=== PATIENT | female | born 1940 | race Caucasian/White ===

== ENCOUNTER 2016-12-02 12:02 | Inpatient (IN) ==
[2016-12-02] MEDS ORDERED: 0.9 % Sodium Chloride 1,000 ML IVC ONE (12:34)
--- NOTE | 2016-12-02 12:37 | Emergency Department Note ---
Disposition Clinical Impression: Anemia Dyspnea Qualifiers: Dyspnea type: dyspnea on exertion Qualified Code(s): R06.09 - Other forms of dyspnea Disposition: Admitted As Inpatient Condition: Fair General Adult HPI - General Chief complaint: ED Shortness of Breath/Dyspnea Stated complaint: CASSIDY Time Seen by Provider: 12/02/16 12:25 Source: patient Limitations: no limitations - History of Present Illness Pain Scale: 0 - Related Data Home Medications Medication Instructions Recorded Confirmed [place]-3/Dha/Epa/Fish Oil [Fish Oil 1,000 mg PO DAILY 07/29/15 12/02/16 1,000 mg Softgel] Aspirin [Lo-Dose Aspirin EC] 81 mg PO DAILY 12/02/16 12/02/16 Metoprolol XL (24 HR) Succ [Toprol 25 mg PO DAILY 12/02/16 12/02/16 XL] Omeprazole [PriLOSEC] 20 mg PO DAILY 12/02/16 12/02/16 Simvastatin [Zocor] 20 mg PO DAILY 12/02/16 12/02/16 Allergies Allergy/AdvReac Type Severity Reaction Status Date / Time No Known Allergies Allergy Verified 12/02/16 12:19 Past Medical History - Past Medical History Medical history: Reports: coronary artery disease, hypertension, myocardial infarction, other Surgical history: Reports: coronary bypass (CABG) Psychiatric history: Reports: no psych history - Social History Smoking Status: Never smoker Smokeless Tobacco Status: No Alcohol use: Reports: none Drug use: Reports: none Physical Exam - General Limitations: no limitations General appearance: alert, in no apparent distress Course - Reevaluation(s) Reevaluation #1: Social the patient with the resident, Dr. Wall. Patient presents with a complaint of dyspnea on exertion. She does not describe dyspnea at rest. She states that at night when she lays down she lays on her back for a while until she relaxes and then rolls over on her side and sleeps. So she is denying orthopnea. She also denies chest pain. Resting on the bed she has good vitals. She does not appear in any respiratory distress. Physical exam is unremarkable except for the fact that the skin looks a little pale although the conjunctiva are normal. Patient does have history of anemia. Story is also concerning for the possibility of anginal equivalent. We will get a workup including cardiac. Disposition will be based on diagnostic results and reevaluation. Time: 12:36 Reevaluation #2: I took a call from lab. They report the patient's hemoglobin is 5.2. I find that to be believable given the patient's history and consolation of symptoms. I do not feel that value needs to be repeated. We will arrange to have the patient admitted for management of this severely symptomatic anemia Time: 13:22 Vital Signs Temperature 97.7 F 12/02/16 12:13 Pulse Rate 73 12/02/16 12:13 Respiratory Rate 18 12/02/16 12:13 Blood Pressure 132/70 12/02/16 12:13 O2 Sat by Pulse Oximetry 100 12/02/16 12:13 Temperature 97.4 F L 12/03/16 12:09 Pulse Rate 80 12/03/16 12:09 Respiratory Rate 15 12/03/16 12:09 Blood Pressure 151/73 12/03/16 12:09 O2 Sat by Pulse Oximetry 99 12/03/16 12:09 Oxygen Delivery Oxygen Delivery Room Air Medical Decision Making - Lab Data Result diagrams: 12/03/16 05:55 12/03/16 04:17 Lab Results 12/02/16 12/02/16 12/02/16 Range/Units 12:56 12:56 12:56 WBC (4.3-11.1) K/mcL RBC (3.82-4.97) M/mcL Hgb (11.5-15.4) g/dL Hct (35.3-44.9) % MCV (83.0-100.0) fL MCH (28.0-33.3) pg MCHC (31.6-35.5) g/dL RDW (11.5-14.5) % Plt Count (140-400) K/mcL MPV (9.4-12.4) fL Reticulocyte # (0.05-0.10) M/mcL Immature Gran % (0-4) % Seg Neutrophils % % Lymphocytes % % Monocytes % % Eosinophils % % Basophils % % Neutrophils # (1.6-8.9) K/mcL Lymphocytes # (0.6-4.6) K/mcL Monocytes # (0.0-1.3) K/mcL Eosinophils # (0.0-0.6) K/mcL Basophils # (0.0-0.2) K/mcL Immature Plt Fraction (1.1-6.1) % Percent Retic (1.6-2.8) % Immature Retic Fraction (11.0-38.0) % Retic Hgb Equivalent (28.61-36.33) pg PT (9.4-12.1) Seconds INR APTT (26.0-36.0) Seconds Sodium 139 (136-145) mEq/L Potassium 4.1 (3.5-4.5) mEq/L Chloride 108 (98-109) mEq/L Carbon Dioxide 25 (19-29) mEq/L BUN 21 H (7-20) mg/dL Creatinine 1.02 (0.57-1.11) mg/dL Est GFR ( Amer) > 60 (> 60) Est GFR (Non-Af Amer) 53 L (> 60) BUN/Creatinine Ratio 21 (6-26) Glucose 113 H (70-99) mg/dL Calculated Osmolality 292 (280-300) Calcium 9.3 (8.6-10.8) mg/dL Iron 13 L (50-170) mcg/dL % Saturation 2 L (15-50) % Transferrin 405 H (180-382) mg/dL Ferritin 7 (5-204) ng/ml Troponin I 0.01 (0-0.03) ng/mL B-Natriuretic Peptide 187 H (0-100) pg/mL Vitamin B12 (213-816) pg/mL Folate (7.0-31.4) ng/mL Urine Color (Yellow) Urine Clarity (Clear) Urine pH (5.0-8.0) pH Units Ur Specific [place] (1.010-1.025) Urine Protein (Neg-Trace) mg/dL Urine Glucose (UA) (Normal) mg/dL Urine Ketones (Negative) mg/dL Urine Blood (Negative) Urine Nitrite (Negative) Urine Bilirubin (Negative) Urine Urobilinogen (Normal) mg/dL Ur Leukocyte Esterase (Negative) Urine Microscopic RBC (0-3) per hpf Urine Microscopic WBC (0-3) per hpf Ur Squamous Epith Cells (None-Few) per lpf Urine Bacteria (None-Few) per hpf Hyaline Casts (None-Few) per lpf Ur Culture Indicated? (NO) Stool Occult Blood (Negative) Blood Type Antibody Screen Crossmatch 12/02/16 12/02/16 12/02/16 Range/Units 12:56 13:59 13:59 WBC (4.3-11.1) K/mcL RBC (3.82-4.97) M/mcL Hgb (11.5-15.4) g/dL Hct (35.3-44.9) % MCV (83.0-100.0) fL MCH (28.0-33.3) pg MCHC (31.6-35.5) g/dL RDW (11.5-14.5) % Plt Count (140-400) K/mcL MPV (9.4-12.4) fL Reticulocyte # (0.05-0.10) M/mcL Immature Gran % (0-4) % Seg Neutrophils % % Lymphocytes % % Monocytes % % Eosinophils % % Basophils % % Neutrophils # (1.6-8.9) K/mcL Lymphocytes # (0.6-4.6) K/mcL Monocytes # (0.0-1.3) K/mcL Eosinophils # (0.0-0.6) K/mcL Basophils # (0.0-0.2) K/mcL Immature Plt Fraction (1.1-6.1) % Percent Retic (1.6-2.8) % Immature Retic Fraction (11.0-38.0) % Retic Hgb Equivalent (28.61-36.33) pg PT (9.4-12.1) Seconds INR APTT (26.0-36.0) Seconds Sodium (136-145) mEq/L Potassium (3.5-4.5) mEq/L Chloride (98-109) mEq/L Carbon Dioxide (19-29) mEq/L BUN (7-20) mg/dL Creatinine (0.57-1.11) mg/dL Est GFR ( Amer) (> 60) Est GFR (Non-Af Amer) (> 60) BUN/Creatinine Ratio (6-26) Glucose (70-99) mg/dL Calculated Osmolality (280-300) Calcium (8.6-10.8) mg/dL Iron (50-170) mcg/dL % Saturation (15-50) % Transferrin (180-382) mg/dL Ferritin (5-204) ng/ml Troponin I (0-0.03) ng/mL B-Natriuretic Peptide (0-100) pg/mL Vitamin B12 342 (213-816) pg/mL Folate 9.7 (7.0-31.4) ng/mL Urine Color Yellow (Yellow) Urine Clarity Clear (Clear) Urine pH 6.5 (5.0-8.0) pH Units Ur Specific [place] 1.018 (1.010-1.025) Urine Protein Negative (Neg-Trace) mg/dL Urine Glucose (UA) Normal (Normal) mg/dL Urine Ketones Negative (Negative) mg/dL Urine Blood Small H (Negative) Urine Nitrite Negative (Negative) Urine Bilirubin Negative (Negative) Urine Urobilinogen Normal (Normal) mg/dL Ur Leukocyte Esterase Negative (Negative) Urine Microscopic RBC 3-5 H (0-3) per hpf Urine Microscopic WBC 0-3 (0-3) per hpf Ur Squamous Epith Cells Moderate H (None-Few) per lpf Urine Bacteria None Seen (None-Few) per hpf Hyaline Casts None Seen (None-Few) per lpf Ur Culture Indicated? NO (NO) Stool Occult Blood Negative (Negative) Blood Type Antibody Screen Crossmatch 12/02/16 12/02/16 12/02/16 Range/Units 14:09 14:09 14:09 WBC 2.9 L (4.3-11.1) K/mcL RBC 3.04 L (3.82-4.97) M/mcL Hgb 5.3 L* (11.5-15.4) g/dL Hct 19.5 L (35.3-44.9) % MCV 64.1 L (83.0-100.0) fL MCH 17.4 L (28.0-33.3) pg MCHC 27.2 L (31.6-35.5) g/dL RDW 16.5 H (11.5-14.5) % Plt Count 172 (140-400) K/mcL MPV 9.2 L (9.4-12.4) fL Reticulocyte # 0.07 (0.05-0.10) M/mcL Immature Gran % 0.3 (0-4) % Seg Neutrophils % 63.9 % Lymphocytes % 21.7 % Monocytes % 12.8 % Eosinophils % 1.0 % Basophils % 0.3 % Neutrophils # 1.9 (1.6-8.9) K/mcL Lymphocytes # 0.6 (0.6-4.6) K/mcL Monocytes # 0.4 (0.0-1.3) K/mcL Eosinophils # 0.0 (0.0-0.6) K/mcL Basophils # 0.0 (0.0-0.2) K/mcL Immature Plt Fraction 4.2 (1.1-6.1) % Percent Retic 2.4 (1.6-2.8) % Immature Retic Fraction 36.3 (11.0-38.0) % Retic Hgb Equivalent 14.7 L (28.61-36.33) pg PT 11.4 (9.4-12.1) Seconds INR 1.1 APTT 25.0 L (26.0-36.0) Seconds Sodium (136-145) mEq/L Potassium (3.5-4.5) mEq/L Chloride (98-109) mEq/L Carbon Dioxide (19-29) mEq/L BUN (7-20) mg/dL Creatinine (0.57-1.11) mg/dL Est GFR ( Amer) (> 60) Est GFR (Non-Af Amer) (> 60) BUN/Creatinine Ratio (6-26) Glucose (70-99) mg/dL Calculated Osmolality (280-300) Calcium (8.6-10.8) mg/dL Iron (50-170) mcg/dL % Saturation (15-50) % Transferrin (180-382) mg/dL Ferritin (5-204) ng/ml Troponin I (0-0.03) ng/mL B-Natriuretic Peptide (0-100) pg/mL Vitamin B12 (213-816) pg/mL Folate (7.0-31.4) ng/mL Urine Color (Yellow) Urine Clarity (Clear) Urine pH (5.0-8.0) pH Units Ur Specific [place] (1.010-1.025) Urine Protein (Neg-Trace) mg/dL Urine Glucose (UA) (Normal) mg/dL Urine Ketones (Negative) mg/dL Urine Blood (Negative) Urine Nitrite (Negative) Urine Bilirubin (Negative) Urine Urobilinogen (Normal) mg/dL Ur Leukocyte Esterase (Negative) Urine Microscopic RBC (0-3) per hpf Urine Microscopic WBC (0-3) per hpf Ur Squamous Epith Cells (None-Few) per lpf Urine Bacteria (None-Few) per hpf Hyaline Casts (None-Few) per lpf Ur Culture Indicated? (NO) Stool Occult Blood (Negative) Blood Type O POSITIVE Antibody Screen NEGATIVE Crossmatch See Detail Attestation Statement - Attestation Attestation: I, Dr. Perez, examined this patient [id number] and my medical decision- making was reviewed with Dr. Wall, Resident Physician. I agree with the documented findings, disposition and treatment plan as described except to the extent set forth below. Please see my progress notes for details.
--- NOTE | 2016-12-02 12:38 | Emergency Department Note ---
Disposition Clinical Impression: Dyspnea Qualifiers: Dyspnea type: dyspnea on exertion Qualified Code(s): R06.09 - Other forms of dyspnea Anemia Qualifiers: Anemia type: unspecified type Qualified Code(s): D64.9 - Anemia, unspecified Disposition: Admitted As Inpatient Condition: Fair SOB HPI - General Chief Complaint: ED Shortness of Breath/Dyspnea Stated Complaint: CASSIDY Time Seen by Provider: 12/02/16 12:25 Source: patient Mode of arrival: ambulatory Limitations: no limitations Nursing Notes Reviewed: Yes Vital Signs Reviewed: Yes - History of Present Illness 76-year-old female with a history of CABG 4 in 2012 and presents for evaluation of dyspnea on exertion. Notes that she has been dyspnea on exertion for the past week. Denies any chest pain. Denies any recent illnesses. No fevers or cough. States that she feels weak and slightly dizzy. Does have a history of anemia and was on iron supplementation until recently he denies any GI bleeding. No dark tarry stools or blood in the stools. No hemoptysis or hematemesis. Denies any abdominal pain. No nausea or vomiting. Denies any chest pain. No changes in medications. Pt Subjective Complaint: shortness of breath - Related Data Home Medications Medication Instructions Recorded Confirmed Fish Oil 500 mg Softgel 07/29/15 Metoprolol Succinate 12/02/16 Simvastatin 12/02/16 12/02/16 Allergies Allergy/AdvReac Type Severity Reaction Status Date / Time No Known Allergies Allergy Verified 12/02/16 12:19 All systems ED: reviewed and negative except as stated. Constitutional: Reports: as per HPI. Denies: fever Eyes: Reports: as per HPI ENT ED: Reports: as per HPI Cardiovascular: Reports: as per HPI Respiratory: Reports: as per HPI, dyspnea. Denies: cough Gastrointestinal: Reports: as per HPI. Denies: nausea, vomiting, hematemesis, melena, hematochezia Genitourinary: Reports: as per HPI Musculoskeletal: Reports: as per HPI Integumentary: Reports: as per HPI Neurological: Reports: as per HPI, weakness Psychiatric: Reports: as per HPI Endocrine: Reports: as per HPI Allergic/Immunologic: Reports: as per HPI Past Medical History - Past Medical History Medical history: Reports: coronary artery disease, hypertension, myocardial infarction, other Surgical history: Reports: coronary bypass (CABG) Psychiatric history: Reports: no psych history - Social History Smoking Status: Never smoker Smokeless Tobacco Status: No Alcohol use: Reports: none Drug use: Reports: none Physical Exam - General Limitations: no limitations General appearance: alert, in no apparent distress - Head Head exam: atraumatic, normocephalic, normal inspection - Eye Eye exam: Present: normal appearance, EOMI. Absent: scleral icterus - ENT ENT exam: normal exam, mucous membranes moist - Neck Neck exam: Present: normal inspection, trachea midline - Chest Chest inspection: Present: normal inspection, symmetric chest wall rise - Respiratory Respiratory exam: Present: normal lung sounds bilaterally. Absent: respiratory distress, prolonged expiratory phase - Cardiovascular Cardiovascular exam: Present: regular rate, normal rhythm - Abdominal Exam Abdominal exam: Present: soft, Non-Tender. Absent: guarding, rebound - Rectal Exam Poultry Buyer present during exam: Yes Rectal exam: Present: normal rectal tone, other (guaic sent to lab). Absent: hemorrhoids - Extremities Exam Extremities exam: Present: normal inspection, pedal edema (trace b/l) - Back Exam Back exam: Present: normal inspection, full ROM. Absent: tenderness - Neurological Exam Neurological exam: Present: alert - Skin Skin exam: Present: warm, dry, intact, pallor Course Course Narrative: Patient seen and examined. Patient's vitals are stable. Patient's in no acute respiratory distress. Patient denies history of congestive heart failure but does have a history of hypertension and CAD. Patient also has a history of anemia. Denying any GI symptoms or blood in stool. Patient skin does appear pallorous. Patient will get a screening cardiovascular exam including EKG, chest Eckrich, troponin. Patient will also get basic lab work looking for anemia. Disposition likely admission. - Reevaluation(s) Reevaluation #1: Asians resting comfortably. No acute distress. No abdominal pain. Patient's hemoglobin did show signs of anemia. Patient states that she had an upper and lower scope a year ago and she can recall no acute abnormalities. Time: 13:48 Vital Signs Temperature 97.7 F 12/02/16 12:13 Pulse Rate 73 12/02/16 12:13 Respiratory Rate 18 12/02/16 12:13 Blood Pressure 132/70 12/02/16 12:13 O2 Sat by Pulse Oximetry 100 12/02/16 12:13 Temperature 97.7 F 12/02/16 12:13 Pulse Rate 82 12/02/16 14:13 Respiratory Rate 18 12/02/16 14:13 Blood Pressure 142/73 12/02/16 14:13 O2 Sat by Pulse Oximetry 97 12/02/16 14:13 Oxygen Delivery Oxygen Delivery Nasal Cannula Shortness of Breath/Dyspnea - MDM Narrative Medical decision making narrative: 76-year-old female presents for evaluation of dyspnea on exertion for the past week. Notes a history of anemia and was on iron supplementation and B12 shots over a year ago. Patient denies any blood in her stool or black tarry stools. No history of liver disease or peptic ulcer disease. Patient did have an upper and lower endoscopy in the past year from what she can recall and did not show any acute abnormalities. Patient's hemoglobin on exam was found to be low likely causing her symptoms. Patient does appear to have some pallor. Patient had a stool guaiac performed and was sent to lab. Patient was given a liter of fluids. Patient's EKG shows no acute changes. Patient's chest x-ray also shows no acute changes. Patient will likely need further evaluation with GI and possible endoscopy. Patient's hemoglobin will need to be trended. Patient be admitted to the hospital service for further evaluation and monitoring. Patient is agreeable plan of care. - Lab Data Lab results reviewed: Yes I reviewed the patient's lab results. Result diagrams: 12/02/16 14:09 12/02/16 12:56 Lab Results 12/02/16 12/02/16 12/02/16 Range/Units 12:56 12:56 12:56 WBC (4.3-11.1) K/mcL RBC (3.82-4.97) M/mcL Hgb (11.5-15.4) g/dL Hct (35.3-44.9) % MCV (83.0-100.0) fL MCH (28.0-33.3) pg MCHC (31.6-35.5) g/dL RDW (11.5-14.5) % Plt Count (140-400) K/mcL MPV (9.4-12.4) fL Immature Gran % (0-4) % Seg Neutrophils % % Lymphocytes % % Monocytes % % Eosinophils % % Basophils % % Neutrophils # (1.6-8.9) K/mcL Lymphocytes # (0.6-4.6) K/mcL Monocytes # (0.0-1.3) K/mcL Eosinophils # (0.0-0.6) K/mcL Basophils # (0.0-0.2) K/mcL Immature Plt Fraction (1.1-6.1) % PT (9.4-12.1) Seconds INR APTT (26.0-36.0) Seconds Sodium 139 (136-145) mEq/L Potassium 4.1 (3.5-4.5) mEq/L Chloride 108 (98-109) mEq/L Carbon Dioxide 25 (19-29) mEq/L BUN 21 H (7-20) mg/dL Creatinine 1.02 (0.57-1.11) mg/dL Est GFR ( Amer) > 60 (> 60) Est GFR (Non-Af Amer) 53 L (> 60) BUN/Creatinine Ratio 21 (6-26) Glucose 113 H (70-99) mg/dL Calculated Osmolality 292 (280-300) Calcium 9.3 (8.6-10.8) mg/dL Troponin I 0.01 (0-0.03) ng/mL B-Natriuretic Peptide 187 H (0-100) pg/mL Urine Color (Yellow) Urine Clarity (Clear) Urine pH (5.0-8.0) pH Units Ur Specific [place] (1.010-1.025) Urine Protein (Neg-Trace) mg/dL Urine Glucose (UA) (Normal) mg/dL Urine Ketones (Negative) mg/dL Urine Blood (Negative) Urine Nitrite (Negative) Urine Bilirubin (Negative) Urine Urobilinogen (Normal) mg/dL Ur Leukocyte Esterase (Negative) Urine Microscopic RBC (0-3) per hpf Urine Microscopic WBC (0-3) per hpf Ur Squamous Epith Cells (None-Few) per lpf Urine Bacteria (None-Few) per hpf Hyaline Casts (None-Few) per lpf Ur Culture Indicated? (NO) Stool Occult Blood (Negative) 12/02/16 12/02/16 12/02/16 Range/Units 13:59 13:59 14:09 WBC 2.9 L (4.3-11.1) K/mcL RBC 3.04 L (3.82-4.97) M/mcL Hgb 5.3 L* (11.5-15.4) g/dL Hct 19.5 L (35.3-44.9) % MCV 64.1 L (83.0-100.0) fL MCH 17.4 L (28.0-33.3) pg MCHC 27.2 L (31.6-35.5) g/dL RDW 16.5 H (11.5-14.5) % Plt Count 172 (140-400) K/mcL MPV 9.2 L (9.4-12.4) fL Immature Gran % 0.3 (0-4) % Seg Neutrophils % 63.9 % Lymphocytes % 21.7 % Monocytes % 12.8 % Eosinophils % 1.0 % Basophils % 0.3 % Neutrophils # 1.9 (1.6-8.9) K/mcL Lymphocytes # 0.6 (0.6-4.6) K/mcL Monocytes # 0.4 (0.0-1.3) K/mcL Eosinophils # 0.0 (0.0-0.6) K/mcL Basophils # 0.0 (0.0-0.2) K/mcL Immature Plt Fraction 4.2 (1.1-6.1) % PT (9.4-12.1) Seconds INR APTT (26.0-36.0) Seconds Sodium (136-145) mEq/L Potassium (3.5-4.5) mEq/L Chloride (98-109) mEq/L Carbon Dioxide (19-29) mEq/L BUN (7-20) mg/dL Creatinine (0.57-1.11) mg/dL Est GFR ( Amer) (> 60) Est GFR (Non-Af Amer) (> 60) BUN/Creatinine Ratio (6-26) Glucose (70-99) mg/dL Calculated Osmolality (280-300) Calcium (8.6-10.8) mg/dL Troponin I (0-0.03) ng/mL B-Natriuretic Peptide (0-100) pg/mL Urine Color Yellow (Yellow) Urine Clarity Clear (Clear) Urine pH 6.5 (5.0-8.0) pH Units Ur Specific [place] 1.018 (1.010-1.025) Urine Protein Negative (Neg-Trace) mg/dL Urine Glucose (UA) Normal (Normal) mg/dL Urine Ketones Negative (Negative) mg/dL Urine Blood Small H (Negative) Urine Nitrite Negative (Negative) Urine Bilirubin Negative (Negative) Urine Urobilinogen Normal (Normal) mg/dL Ur Leukocyte Esterase Negative (Negative) Urine Microscopic RBC 3-5 H (0-3) per hpf Urine Microscopic WBC 0-3 (0-3) per hpf Ur Squamous Epith Cells Moderate H (None-Few) per lpf Urine Bacteria None Seen (None-Few) per hpf Hyaline Casts None Seen (None-Few) per lpf Ur Culture Indicated? NO (NO) Stool Occult Blood Negative (Negative) 12/02/16 Range/Units 14:09 WBC (4.3-11.1) K/mcL RBC (3.82-4.97) M/mcL Hgb (11.5-15.4) g/dL Hct (35.3-44.9) % MCV (83.0-100.0) fL MCH (28.0-33.3) pg MCHC (31.6-35.5) g/dL RDW (11.5-14.5) % Plt Count (140-400) K/mcL MPV (9.4-12.4) fL Immature Gran % (0-4) % Seg Neutrophils % % Lymphocytes % % Monocytes % % Eosinophils % % Basophils % % Neutrophils # (1.6-8.9) K/mcL Lymphocytes # (0.6-4.6) K/mcL Monocytes # (0.0-1.3) K/mcL Eosinophils # (0.0-0.6) K/mcL Basophils # (0.0-0.2) K/mcL Immature Plt Fraction (1.1-6.1) % PT 11.4 (9.4-12.1) Seconds INR 1.1 APTT 25.0 L (26.0-36.0) Seconds Sodium (136-145) mEq/L Potassium (3.5-4.5) mEq/L Chloride (98-109) mEq/L Carbon Dioxide (19-29) mEq/L BUN (7-20) mg/dL Creatinine (0.57-1.11) mg/dL Est GFR ( Amer) (> 60) Est GFR (Non-Af Amer) (> 60) BUN/Creatinine Ratio (6-26) Glucose (70-99) mg/dL Calculated Osmolality (280-300) Calcium (8.6-10.8) mg/dL Troponin I (0-0.03) ng/mL B-Natriuretic Peptide (0-100) pg/mL Urine Color (Yellow) Urine Clarity (Clear) Urine pH (5.0-8.0) pH Units Ur Specific [place] (1.010-1.025) Urine Protein (Neg-Trace) mg/dL Urine Glucose (UA) (Normal) mg/dL Urine Ketones (Negative) mg/dL Urine Blood (Negative) Urine Nitrite (Negative) Urine Bilirubin (Negative) Urine Urobilinogen (Normal) mg/dL Ur Leukocyte Esterase (Negative) Urine Microscopic RBC (0-3) per hpf Urine Microscopic WBC (0-3) per hpf Ur Squamous Epith Cells (None-Few) per lpf Urine Bacteria (None-Few) per hpf Hyaline Casts (None-Few) per lpf Ur Culture Indicated? (NO) Stool Occult Blood (Negative) - Radiology Data Radiology results reviewed: Yes I reviewed the patient's radiology results. Chest X-Ray 12/02/16 12:35 IMPRESSION: No acute cardiopulmonary disease. D/ / 12/02/2016 12:50:58 Olman Dupree MD / bcaart Interpreting Provider: Olman Dupree MD - EKG Data EKG attestation: Yes I reviewed and interpreted this EKG. EKG shows normal: Reports: sinus rhythm Rate: Reports: normal Rhythm: Reports: NSR [place]/QRS: Reports: left axis deviation Voltage: Reports: c/w LVH Interpretation: Reports: no acute changes, unchanged when compared to prior tracing (date) (08/11), nonspecific ST-T wave changes S.B.A.ROpal - S.Queta.AOumou Situation: Demographics Background: Presenting Complaint Assessment: Vital Signs, Course and respsone to treatment, Patient/Family Expectation Recommendation: Barrier(s) to disposition, Recommendation based on pending studies, treatments, or consults S.B.AOpalROpal Report Given to: Dr. Salas Walton Time: 14:17
[2016-12-02 13:16] LABS: BUN/Creatinine Ratio 21 (6-26); Blood Urea Nitrogen 21 mg/dL (7-20); Calcium 9.3 mg/dL (8.6-10.8); Carbon Dioxide 25 mEq/L (19-29); Chloride 108 mEq/L (98-109); Glucose 113 mg/dL (70-99); Osmolality,Calculated 292 (280-300); Potassium 4.1 mEq/L (3.5-4.5); Sodium 139 mEq/L (136-145); eGFR For African Americans > 60 (> 60); eGFR For Non-African Americans 53 (> 60)
[2016-12-02] MEDS ORDERED: Pantoprazole 80 MG in 0.9 % Sodium Chloride 50 ML IVPB ONE (13:46)
[2016-12-02 14:17] LABS: Bilirubin,Urine Negative (Negative); Blood,Urine Small (Negative); Clarity,Urine Clear (Clear); Color,Urine Yellow (Yellow); Glucose,Urine (UA) Normal (Normal); Ketones,Urine Negative (Negative); Leukocyte Esterase,Urine Negative (Negative); Nitrite,Urine Negative (Negative); PH,Urine 6.5 pH Units (5.0-8.0); Protein,Urine Negative (Neg-Trace); Specific Gravity,Urine 1.018 (1.010-1.025); Urobilinogen,Urine Normal (Normal)
[2016-12-02 14:17] LABS: Basophils % 0.3 %; Hematocrit 19.5 % (35.3-44.9); Immature Granulocytes % 0.3 % (0-4); Immature Platelets 4.2 % (1.1-6.1); Lymphocytes # 0.6 K/mcL (0.6-4.6); Lymphocytes % 21.7 %; Mean Corpuscular HGB Conc 27.2 g/dL (31.6-35.5); Mean Corpuscular Hemoglobin 17.4 pg (28.0-33.3); Mean Corpuscular Volume 64.1 fL (83.0-100.0); Mean Platelet Volume 9.2 fL (9.4-12.4); Monocytes # 0.4 K/mcL (0.0-1.3); Monocytes % 12.8 %; Neutrophils # 1.9 K/mcL (1.6-8.9); Platelet Count 172 K/mcL (140-400); Red Blood Count 3.04 M/mcL (3.82-4.97); Red Cell Distribution Width 16.5 % (11.5-14.5); Segmented Neutrophils % 63.9 %
[2016-12-02 14:19] LABS: Bacteria,Urine None Seen per hpf (None-Few); Hyaline Casts,Urine None Seen per lpf (None-Few); Squamous Epithelial Cell,Urine Moderate per lpf (None-Few); WBC,Urine 0-3 per hpf (0-3)
[2016-12-02 14:22] LABS: Hemoglobin 5.3 g/dL (11.5-15.4)
[2016-12-02 14:37] LABS: INR 1.1; Prothrombin Time 11.4 Seconds (9.4-12.1)
[2016-12-02] MEDS ORDERED: Pantoprazole 40 MG in 0.9 % Sodium Chloride Mini Bag 100 ML IVC SCH (15:00)
[2016-12-02] MEDS ORDERED: Ondansetron 4 MG/2 ML VIAL IVP PRN (15:54)
[2016-12-02] MEDS ORDERED: Naloxone 0.4 MG/ML INJ IVP PRN (15:54)
[2016-12-02 16:27] LABS: Immature Reticulocyte % 36.3 % (11.0-38.0); Retculocyte # 0.07 M/mcL (0.05-0.10); Reticulocyte % 2.4 % (1.6-2.8)
[2016-12-02 16:39] LABS: % Iron Saturation 2 % (15-50); Iron 13 mcg/dL (50-170); Transferrin 405 mg/dL (180-382)
[2016-12-02] MEDS ORDERED: Polyethylene Glycol 3350 255 GM POWDER PO PRN (16:41)
[2016-12-02] MEDS ORDERED: SODIUM CHLORIDE/NAHCO3/KCL/PEG 4,000 ML SOLN.RECON PO ONE (16:41)
[2016-12-02] MEDS ORDERED: Furosemide 20 MG/2 ML VIAL IVP PRN (16:49)
[2016-12-02 16:59] LABS: Ferritin 7 ng/ml (5-204)
--- NOTE | 2016-12-02 17:06 | Internal Med History&Physical ---
Date of Encounter: 12/02/16 Time of Encounter: 15:00 Assessment and Plan (1) Symptomatic anemia Current visit: Yes Status: Acute patient has been experiencing exertional dyspnea as well as fatigue and dizziness. Her hemoglobin was 5.3 on presentation appears last hemoglobin June 2016 she was 12. She does have a past history of iron deficiency anemia and was on iron supplements up until about a year ago. Occult stool was negative. Patient was typed and screened for 2 units PRBCs will give Lasix in between each unit 2 we will give Protonix IV every 12 hours 3 monitor H&H 4 consult GI-spoke with Dr. Gregorio who requests patient be nothing by mouth after midnight and night with bowel prep. 5 we will hold aspirin for now 6 anemia lab workup (2) CAD (coronary artery disease) Current visit: Yes Status: Acute On patient has not been experiencing any chest pain however she does have some dyspnea. For sick cardiac troponins are negative we will continue to cycle cardiac troponins 2 we will obtain cardiac echo 3 we will hold aspirin for now due to sudden anemia will continue with statin and metoprolol. Qualifiers: Coronary Disease-Associated Artery/Lesion type: [place] artery [place] vs. transplanted heart: [place] heart Associated angina: without angina Qualified Code(s): I25.10 - Atherosclerotic heart disease of [place] coronary artery without angina pectoris (3) CKD (chronic kidney disease) stage 3, GFR 30-59 ml/min Current visit: Yes Status: Acute Creatinine is 1. 02 stable at this time we will continue to monitor avoid nephrotoxins Monitor intake and output daily weights (4) DVT prophylaxis Current visit: Yes Status: Acute SCDs Internal Medicine - H&P: HPI Chief complaint: CHEN Admitted From: Emergency Dept Plans for Post Hospital Care: Home History of present illness: Ms. Watkins is a 76 year old female past medical history of CAD with CABG NORTH 2013 GERD lipidemia iron deficiency anemia. According to the patient she has been experiencing increasing dyspnea on exertion for the past week as well as fatigue/slight dizziness. She denies any chest pain recent illness sick exposures fevers cough nausea vomiting diarrhea abdominal pains. Patient has a history of anemia and was on iron supplements up until approximately year ago, she also was receiving B12 injections however she stopped that 2 years ago. She denies any history of GI bleeds she states that she had a colonoscopy EGD a year ago which was negative. She denies any dark tarry stools brian blood hematemesis hematuria hemoptysis. She is not on any blood thinners she does not take any NSAIDs she does take a baby aspirin daily She initially presented to an urgent care advised her to go to the ER. According to ER records lab work revealed patient had a hemoglobin of 5.3. Upon review last hemoglobin in June 2016 was 12.3. Troponin was 0.01 chest x-ray with no acute process occult stool was negative. She was typed and screened for 2 units of PRBCs and prepped for transfusion. She was given Protonix. she has been admitted for further workup and evaluation. Presently patient denies any chest pain or shortness of breath. She does not appear to be any respiratory distress. Patient does appear pale. Lungs sounds are clear in all vaca. Heart sounds S1-S2 with no rubs clicks gallops murmurs noted no pedal edema abdomen soft nontender. She is hemodynamically stable at this time IV this case with who agrees with plan. Past Med Surg Social Fam HX - Past Medical History Medical history: coronary artery disease, hypertension, myocardial infarction, other Psychiatric history: no psych history - Past Surgical History Surgical History: coronary bypass (CABG), [place]/BSO - Social History Smoking Status: Never smoker Smokeless Tobacco Status: No Alcohol use: none Drug use: none - Family History Father Living Status: Age at : 51 Cause of : MS Mother Living Status: Still Living Hx Family Cardiac Disorders: Yes (Hypertension) Internal Medicine - H&P: Meds [place]-3/Dha/Epa/Fish Oil [Fish Oil 1,000 mg Softgel] 1,000 mg PO DAILY 07/29/15 [History] Aspirin [Lo-Dose Aspirin EC] 81 mg PO DAILY 12/02/16 [History] Metoprolol XL (24 HR) Succ [Toprol XL] 25 mg PO DAILY 12/02/16 [History] Omeprazole [PriLOSEC] 20 mg PO DAILY 12/02/16 [History] Simvastatin [Zocor] 20 mg PO DAILY 12/02/16 [History] Allergies No Known Allergies Allergy (Verified 12/02/16 12:19) All Systems PM: A 10-system review of systems was performed and is negative for pertinent findings except as documented above in the HPI. - Constitutional Constitutional: fatigue, weakness - Cardiovascular Cardiovascular ROS IM: dyspnea on exertion, no chest pain, no diaphoresis, no dyspnea, no lightheadedness, no palpitations, no syncope - Respiratory Respiratory: dyspnea on exertion - Gastrointestinal Gastrointestinal: no abdominal pain, no diarrhea, no hematemesis, no hematochezia, no melena, no nausea, no vomiting - Genitourinary Genitourinary: no change in urinary stream, no dysuria, no flank pain, no hematuria - Musculoskeletal Musculoskeletal ROS IM: no numbness, no tingling - Integumentary Integumentary IM: no rash, no unusual bruising - Neurological Neurological ROS: no confusion, no convulsions, no focal weakness, no numbness, no tingling, no tremor(s) - Hematologic/Lymphatic Hematologic/Lymphatic: no easy bruising - Constitutional Vitals: Temp Pulse Resp BP Pulse Ox 97.6 F 82 14 148/70 100 12/02/16 16:20 12/02/16 16:20 12/02/16 16:20 12/02/16 16:20 12/02/16 16:20 General appearance: Present: A&O X 3, answers questions appropriately - Head Head exam: Present: atraumatic, normocephalic - Eye Eye exam: Present: PERRL, sclera anicteric Pupils: Present: PERRL Additional comments: Conjunctiva pale - Neck Neck exam general surgery: Present: supple, trachea midline. Absent: lymphadenopathy - Respiratory Respiratory exam: Present: CTAB. Absent: accessory muscle use, rales, rhonchi, wheezes - Cardiovascular Cardiovascular exam: Present: RRR, +S1, +S2. Absent: diastolic murmur, gallop, rubs, systolic murmur - GI/Abdominal GI/Abdominal exam: Present: normal bowel sounds, soft, no peritoneal signs. Absent: distended, tenderness - Extremities Exam Extremities exam: Present: warm, radial pulses palpable and symetrical. Absent : calf tenderness, cyanotic, pedal edema - Neurological Exam Neurological exam: Present: CN II-XII intact, oriented X3, no focal deficits. Absent: pronater drift, facial droop, speech deficit - Skin Skin exam: Present: dry, intact, pallor Internal Med - H&P Results - Labs CBC & Chem 7: 12/02/16 14:12/02/16 12:56 - EKG Data EKG shows normal: sinus rhythm - EKG Data Prior EKG available for review: yes When compared to previous EKG: there is no significant change - Diagnostic Studies Other Images Additional comments: Chest X-Ray 12/02/16 12:35 IMPRESSION: No acute cardiopulmonary disease. D/ / 12/02/2016 12:50:58 Olman Dupree MD / andres Interpreting Provider: Olman Dupree MD
[2016-12-02] MEDS ORDERED: 0.9 % Sodium Chloride 250 ML ONE (17:40)
[2016-12-02 17:48] LABS: Folate 9.7 ng/mL (7.0-31.4)
[2016-12-03] MEDS ORDERED: 0.9 % Sodium Chloride 250 ML ONE ×2 (00:27→22:39)
[2016-12-03 05:03] LABS: BUN/Creatinine Ratio 12 (6-26); Blood Urea Nitrogen 11 mg/dL (7-20); Calcium 8.7 mg/dL (8.6-10.8); Carbon Dioxide 22 mEq/L (19-29); Chloride 111 mEq/L (98-109); Glucose 109 mg/dL (70-99); Osmolality,Calculated 288 (280-300); Potassium 3.9 mEq/L (3.5-4.5); Sodium 139 mEq/L (136-145); eGFR For African Americans > 60 (> 60); eGFR For Non-African Americans > 60 (> 60)
[2016-12-03 06:14] LABS: Basophils % 0.3 %; Hematocrit 23.7 % (35.3-44.9); Hemoglobin 6.9 g/dL (11.5-15.4); Immature Granulocytes % 0.7 % (0-4); Immature Platelets 4.6 % (1.1-6.1); Lymphocytes # 0.6 K/mcL (0.6-4.6); Lymphocytes % 18.6 %; Mean Corpuscular HGB Conc 29.1 g/dL (31.6-35.5); Mean Corpuscular Hemoglobin 20.1 pg (28.0-33.3); Mean Corpuscular Volume 69.1 fL (83.0-100.0); Mean Platelet Volume 9.4 fL (9.4-12.4); Monocytes # 0.4 K/mcL (0.0-1.3); Monocytes % 13.3 %; Platelet Count 149 K/mcL (140-400); Red Blood Count 3.43 M/mcL (3.82-4.97); Red Cell Distribution Width 22.5 % (11.5-14.5); Segmented Neutrophils % 66.1 %
[2016-12-03 06:47] LABS: Anisocytosis 2+ (Not Present); Platelet Estimate Normal (Normal)
[2016-12-03 06:48] LABS: Hypochromasia Present (Not Present); Microcytosis Present (Not Present)
[2016-12-03] MEDS ORDERED: Simethicone 40 MG/0.6 ML MLS IR ONE (07:52)
--- NOTE | 2016-12-03 07:54 | Pre-Sedation Evaluation ---
Pre-sedation evaluation - Pre-sedation checklist Date of procedure: 12/03/16 Procedure: EGD and Colonoscopy Recent Vitals: Last Vital Signs Temp 97.9 F 12/03/16 06:54 Pulse 90 12/03/16 06:54 Resp 16 12/03/16 06:54 BP 148/71 12/03/16 06:54 Pulse Ox 96 12/03/16 06:54 H&P (including ROS) documented in medical record: Yes Previous reaction to sedatives/anesthetics: No Dietary Status: NPO after Midnight Airway Assessment: Patient can open mouth completely, TMJ function normal Dentition: No loose teeth or bridges Possible difficult airway: No ASA Classification *see protocol: CLASS II-Mild systemic disease Plan of Care: Pt appropriate candidate for procedure/moderate/conscious sedation , Risks/benefits of procedure/sedation discussed w/ patient/family
[2016-12-03] MEDS ORDERED: *HR* Midazolam HCl 5 MG/5 ML VIAL IVP ONE (07:56)
[2016-12-03] MEDS ORDERED: *HR* FentaNYL (PF) 100 MCG/2 ML VIAL ONE (07:57)
[2016-12-03] MEDS: *HR* Midazolam HCl 5 MG/5 ML VIAL IVP PRN ×2 (08:02→08:17)
[2016-12-03] MEDS: *HR* FentaNYL (PF) 100 MCG/2 ML VIAL IVP PRN ×2 (08:02→08:04)
[2016-12-03] MEDS: Pantoprazole 40 MG VIAL IVP SCH ×2 (09:56→17:11)
--- NOTE | 2016-12-03 10:50 | Event Note ---
Date of Encounter: 12/02/16 Time of Encounter: 16:00 76 year old female with h/o- CAD/CABG, HTN, CKD, iron-deficiency and B12 deficiency anemia, was admitted with exertional dyspnea, fatigue and dizziness. Patient is noted to have anemia with Hb 5.3 (baseline from 5 months ago was 12.5 ). Stool occult blood test negative in the ER. No reported hematuria, hematemesis, melena/hematochezia, hemoptysis; does use baby ASA but no reported anticoagulants or NSAID use at home; Patient seen and examined at bedside; Awake, alert and oriented*3 Chest- S1, S2 heard, systolic murmur Lungs are clear to auscultation Abdomen- soft, nontender Reviewed labs; EKG shows NSR; Symptomatic anemia- Plan to transfuse PRBC with intermittent Lasix; keep Hb>7 for now; supportive care and supplemental O2; continue to monitor Hb; Microcytic hypochromic anemia- check iron profile, Vit B12, FA levels; transfuse to keep Hb>7; r/o- GI bleed given significant drop in Hb, would benefit from EGD and Colonoscopy; d/w Surgery who plan to perform EGD/ Colonoscopy in am; keep NPO after midnight; GI bleed- suspected; no e/o- coffee ground emesis or UGIB; will d/c IV PPI drip ; continue IV Protonix BID for now; I have reviewed this case with the GUN STRIPER and Agree with GUN STRIPER note and rest of the plan;
--- NOTE | 2016-12-03 10:54 | Internal Med Progress Note ---
Date of Encounter: 12/03/16 Time of Encounter: 10:52 - Assessment and plan (1) Symptomatic anemia Current Visit: Yes Status: Acute Assessment and plan: Improving symptoms. Hemoglobin noted to be 6.9 after 2 units PRBC transfusion. We will transfuse 2 more units given underlying heart disease. Will use Lasix between transfusions. Continue to monitor. Unclear etiology. Underwent EGD and colonoscopy which showed no significant bleeding. EGD was noted to be completely normal; colonoscopy revealed 5 mm sessile cecal polyp, which was removed and sent for biopsy. Serum vitamin B12 and folic acid noted to be within normal limits. Serum iron noted to be low at 13, transferrin 405, ferritin was low at 7. Start ferrous sulfate supplements. Check hemolysis labs-reticulocyte count, haptoglobin and LDH. May need hemoglobin electrophoresis. Hematology consult as needed. (2) GI bleed Current Visit: Yes Status: Ruled-out Assessment and plan: EGD and colonoscopy noted to be completely normal. Stool occult blood test in the emergency room was negative. Low suspicion for GI bleed at this time. Qualifiers: GI bleed type/associated pathology: unspecified gastrointestinal hemorrhage type Qualified Code(s): K92.2 - Gastrointestinal hemorrhage, unspecified (3) Essential hypertension Current Visit: Yes Status: Chronic Assessment and plan: Continue home medications. (4) CAD (coronary artery disease) Current Visit: Yes Status: Chronic Qualifiers: Coronary Disease-Associated Artery/Lesion type: [place] artery [place] vs. transplanted heart: [place] heart Associated angina: without angina Qualified Code(s): I25.10 - Atherosclerotic heart disease of [place] coronary artery without angina pectoris (5) CKD (chronic kidney disease) stage 3, GFR 30-59 ml/min Current Visit: Yes Status: Chronic - Subjective Interval history: Just came back from EGD/Colonoscopy; feels slightly drowsy from anesthesia and reports some throat pain due to the procedure; no chest/abdominal pain, dyspnea ; improved fatigue and pallor; - Constitutional Vitals: Temp Pulse Resp BP Pulse Ox 99.1 F 87 16 111/56 99 12/03/16 07:50 12/03/16 08:37 12/03/16 08:37 12/03/16 08:37 12/03/16 08:37 General appearance: Present: A&O X 3 (slightly drowsy), answers questions appropriately - Respiratory Respiratory exam: Present: CTAB. Absent: accessory muscle use, rales, rhonchi, wheezes - Cardiovascular Cardiovascular exam: Present: RRR, +S1, +S2. Absent: diastolic murmur, gallop, rubs, systolic murmur - GI/Abdominal GI/Abdominal exam: Present: normal bowel sounds, soft, no peritoneal signs. Absent: distended, tenderness - Extremities Exam Extremities exam: Present: full ROM, warm, radial pulses palpable and symetrical. Absent: calf tenderness, cyanotic, pedal edema Internal Medicine: Result - Labs CBC & Chem 7: 12/03/16 05:55 12/03/16 04:17 Labs: Short CBC 12/03/16 Range/Units 05:55 WBC 3.0 L (4.3-11.1) K/mcL Hgb 6.9 L D (11.5-15.4) g/dL Hct 23.7 L (35.3-44.9) % Plt Count 149 (140-400) K/mcL Neutrophils # 2.0 (1.6-8.9) K/mcL BMP 12/03/16 04:17 Sodium 139 Potassium 3.9 Chloride 111 H Carbon Dioxide 22 BUN 11 D Creatinine 0.89 Glucose 109 H Calcium 8.7 Cardiac Enzymes 12/02/16 12/03/16 Range/Units 21:50 04:17 Troponin I 0.01 0.01 (0-0.03) ng/mL - ABG Interpretation ABG results: PT/INR, D-dimer PT 11.4 Seconds (9.4-12.1) 12/02/16 14:09 Consult Discharge Plan - Plan Referrals: Rhonda Hanley DO [Primary Care Provider] -
[2016-12-03] MEDS: Metoprolol XL (24 HR) Succ 25 MG TAB.ER.24H PO SCH (12:44)
[2016-12-03] MEDS ORDERED: Furosemide 20 MG/2 ML VIAL IVP ONE (14:36)
[2016-12-03 16:34] LABS: Immature Reticulocyte % 6.1 % (11.0-38.0); Retculocyte # 0.05 M/mcL (0.05-0.10); Reticulocyte % 1.3 % (1.6-2.8)
--- NOTE | 2016-12-03 17:33 | ECHO - Doppler Report ---
Echocardiogram Name: Judy Watkins Date of Study: 12/03/2016 Date: 1940 Ht: 63.0 in Medical Record#: [id number] Age: 76 Wt: 167.0 lb Gender: Female BSA: 1.79 Order #: [id number] Location: [facility] Room #: 2NE30 Reading Physician: Tess Amezquita DO Energy Conservation Technician: Beverley Dickey XIN Ordering Physician: Haris Conde MD Primary Physician: Rhonda Hanley DO Indications: Dyspnea Impressions: LVEF 60%. Normal left ventricular size and systolic function. There is evidence of mild diastolic dysfunction of the left ventricle. Normal right ventricular size and function. Mild-moderate mitral regurgitation. Mild-moderate tricuspid regurgitation. No pulmonary hypertension. Left Ventricular Wall Motion: Rest Echo Findings All wall segments showed normal motion. Findings: Study Quality * Technically adequate exam. ECG Findings * Normal sinus rhythm. Aorta * Normally sized aortic root. Aortic Valve * No aortic regurgitation. * Leaflets are not well characterized. Mild calcification. * No aortic stenosis. Mitral Valve * Normal mitral valve structure. * No mitral stenosis. * Mild-moderate mitral regurgitation. Tricuspid Valve * Normal tricuspid valve structure. * Mild-moderate tricuspid regurgitation. * Estimated RA pressure is 3 mmHg. * Estimated RVSP is 31 mmHg. * No pulmonary hypertension. Pulmonic Valve * Pulmonic valve is not well visualized. * No pulmonic stenosis. * Trace pulmonic regurgitation. Pulmonary Artery * Pulmonary artery not well visualized. Right Ventricle * Normal right ventricular structure and function. Right Atrium * Normal right atrial size. Left Ventricle * LVEF 60%. * Normal LV chamber size, wall thickness and function. * Mild left ventricular diastolic dysfunction. Pericardium * There is no pericardial effusion present. Left Atrium * Severely dilated left atrium. Interatrial Septum * No evidence of PFO by color Doppler. IVC * Normal IVC dimensions and inspiratory collapse. History Hypertension Hypercholesteremia Family History of CAD History of CAD/PTCA Coronary Artery Bypass Graft 08-05-12 a Previous Echo was performed. Measurements: BP: 148/ 71 2D Normal Values RVIDd: 3.30 cm <2.7 cm IVSd: 1.10 cm 0.6 - 1.0 cm LVIDd: 3.80 cm 3.7 - 5.6 cm LVPWd: 1.20 cm 0.6 - 1.1 cm LVIDs: 2.50 cm 1.5 - 3.6 cm AO: 2.60 cm < 4.0 cm LA: 3.80 cm 2.0 - 4.0cm %FS: 34.20 cm >25 % LVOT Diam: 1.90 cm LA volume: 82 Mitral Valve Peak E:1.43 m/sec Peak A:1.77 m/sec E/A Ratio:0.8 Peak E' Lat Danilo:9.07 cm/s Peak E' Med Danilo:5.65 cm/s E/E' Lat Ratio:15.8 E/E' Med Ratio:25.3 Tricuspid Valve TV Regurg Peak Grad: 28.00mmHg TV Regurg Peak Danilo: 2.66m/sec Updated by Tess Amezquita on 12/03/2016 5:27:45 PM electronically signed on 12/03/2016 5:28:50 PM with status of Final Wall Motion [place]: 1=Normal, 2=Hypokinesis, 3=Akinesis, 4=Dyskinesis, 5=Aneurysmal, 6=Hyperkinetic, X=Not Visualized (Blank)=Missing
--- NOTE | 2016-12-03 17:59 | Electrocardiograph Report ---
[place] [id number] Test Date: 2016-12-02 Pat Name: Judy Watkins Department: 102 Room: 2N0 Gender: F Director Of Enrollment: [facility] : 1940 Requested By: Mando Wall Order Number: [id number] Reading MD: Tess Amezquita Measurements Intervals [place] Rate: 78 P: 53 GA: 173 QRS: -2 QRSD: 82 T: 55 QT: 339 QTc: 372 Interpretive Statements SINUS RHYTHM NONSPECIFIC T-WAVE ABNORMALITY Electronically Signed On 12-03-2016 17:57:26 EDT by Tess Amezquita
[2016-12-03] MEDS: Acetaminophen 325 MG TABLET PO PRN (21:44)
[2016-12-04] MEDS ORDERED: 0.9 % Sodium Chloride 250 ML ONE (05:08)
[2016-12-04 05:24] LABS: Basophils % 0.6 %; Eosinophils # 0.1 K/mcL (0.0-0.6); Eosinophils % 1.8 %; Hematocrit 29.6 % (35.3-44.9); Immature Granulocytes % 0.6 % (0-4); Lymphocytes # 0.6 K/mcL (0.6-4.6); Lymphocytes % 18.7 %; Mean Corpuscular HGB Conc 29.7 g/dL (31.6-35.5); Mean Corpuscular Hemoglobin 21.3 pg (28.0-33.3); Mean Corpuscular Volume 71.7 fL (83.0-100.0); Mean Platelet Volume 9.7 fL (9.4-12.4); Monocytes # 0.5 K/mcL (0.0-1.3); Monocytes % 15.3 %; Neutrophils # 2.1 K/mcL (1.6-8.9); Platelet Count 145 K/mcL (140-400); Red Blood Count 4.13 M/mcL (3.82-4.97); Red Cell Distribution Width 24.3 % (11.5-14.5)
[2016-12-04 05:29] LABS: Hemoglobin 8.8 g/dL (11.5-15.4)
[2016-12-04] MEDS: Pantoprazole 40 MG VIAL IVP SCH (05:30)
[2016-12-04] MEDS: Acetaminophen 325 MG TABLET PO PRN ×2 (05:30→14:19)
[2016-12-04 05:46] LABS: Calcium 9.1 mg/dL (8.6-10.8); Potassium 3.6 mEq/L (3.5-4.5)
[2016-12-04 05:47] LABS: Anisocytosis 2+ (Not Present); Hypochromasia Present (Not Present); Microcytosis Present (Not Present); Platelet Estimate Normal (Normal); Poikilocytosis 1+ (Not Present)
[2016-12-04] MEDS: Metoprolol XL (24 HR) Succ 25 MG TAB.ER.24H PO SCH (08:21)
[2016-12-04 10:56] LABS: Immature Reticulocyte % 18.4 % (11.0-38.0); Retculocyte # 0.07 M/mcL (0.05-0.10); Reticulocyte % 1.6 % (1.6-2.8)
[2016-12-04 11:59] VITALS: BP 160/93
[2016-12-04 14:33] LABS: Calcium 9.2 mg/dL (8.6-10.8); Potassium 3.8 mEq/L (3.5-4.5)
--- NOTE | 2016-12-04 14:38 | Discharge Summary ---
Date of Encounter: 12/04/16 Time of Encounter: 10:00 - Discharge Diagnosis (1) Symptomatic anemia Priority: Primary Status: Acute (2) GI bleed Priority: Primary Status: Ruled-out Qualifiers: GI bleed type/associated pathology: unspecified gastrointestinal hemorrhage type Qualified Code(s): K92.2 - Gastrointestinal hemorrhage, unspecified (3) Essential hypertension Priority: Secondary Status: Chronic (4) CAD (coronary artery disease) Priority: Secondary Status: Chronic Qualifiers: Coronary Disease-Associated Artery/Lesion type: [place] artery [place] vs. transplanted heart: [place] heart Associated angina: without angina Qualified Code(s): I25.10 - Atherosclerotic heart disease of [place] coronary artery without angina pectoris (5) CKD (chronic kidney disease) stage 3, GFR 30-59 ml/min Priority: Secondary Status: Chronic - Discharge Medications Prescriptions: Amlodipine [Norvasc] 5 mg PO DAILY #30 tablet Ferrous Sulfate 325 mg PO BIDWM #60 tablet Home Medications: [place]-3/Dha/Epa/Fish Oil [Fish Oil 1,000 mg Softgel] 1,000 mg PO DAILY 07/29/15 [History] Aspirin [Lo-Dose Aspirin EC] 81 mg PO DAILY 12/02/16 [History] Metoprolol XL (24 HR) Succ [Toprol Xl] 25 mg PO DAILY 12/02/16 [History] Omeprazole [PriLOSEC] 20 mg PO DAILY 12/02/16 [History] Simvastatin [Zocor] 20 mg PO DAILY 12/02/16 [History] Amlodipine [Norvasc] 5 mg PO DAILY #30 tablet 12/04/16 [Rx] Ferrous Sulfate 325 mg PO BIDWM #60 tablet 12/04/16 [Rx] Allergies/Adverse Reactions: Allergies No Known Allergies Allergy (Verified 12/02/16 12:19) Procedures/tests Complete & Pending: Procedures Performed prior 72 hours Category Date Time Status EV echocardiogram Routine Y 12/03/16 12:00 Completed Date of admission: 12/02/16 16:11 Primary care physician: Lorene Brown Consults: 12/02/16 16:51 Consult to Gastroenterology [CONS] Routine Consulting Provider: Gastroenterology Heydi Reason for Consult: Anemia Time Notified: 16:52 Call Completed: Yes Discharging clinician: Jennifer Kenyon Anticipated date of discharge: 12/04/16 - Patient Status Disposition: Home, Self-Care Condition: Good Functional capacity at discharge: independent ambulation Overall status at discharge: patient is progressing back to baseline - Discharge Instructions Instructions: Anemia (GEN) Follow Up With: Rhonda Hanley DO [Primary Care Provider] - 12/12/16 1:30 pm Gordo Morocho MD [Partnered Physician] - 12/06/16 8:40 am - Diet and Activity Activity: resume usual activities as tolerated Diet: low fat, low cholesterol, low salt diet Hospital course: Ms. Watkins is a 76 year old female who was admitted with worsening fatigue and exertional dyspnea. She was noted to have an acute anemia with hemoglobin of 5.3 at admission, her baseline was noted to be 12.5, around 5 months back. She was placed on telemetry monitoring and she received a total of 4 units PRBC transfusion during this admission and her hemoglobin this morning was 8.8, with fourth unit still running. Anemia workup showed normal vitamin B12 and folic acid levels, low iron stores and she has been started on oral ferrous sulfate supplements. Hemolysis workup is negative. Fecal occult blood test was negative. Surgery was consulted and patient underwent EGD and colonoscopy given her significant drop in hemoglobin. These studies have showed no acute abnormalities except small sessile polyp in cecum, which has been biopsied. Patient's symptoms improved gradually and case has been discussed with hematology, who agreed with outpatient follow-up and patient is being given an appointment in hematology clinic and is otherwise medically stable for discharge. - Time Spent with Patient Total time spent providing and/or coordinating discharge services: Greater than 30 minutes (50 min) - Constitutional Vitals: Temp Pulse Resp BP Pulse Ox 97.7 F 81 16 160/93 97 12/04/16 11:57 12/04/16 11:57 12/04/16 11:57 12/04/16 11:57 12/04/16 11:57 General appearance: Present: A&O X 3, answers questions appropriately - Respiratory Respiratory exam: Present: CTAB. Absent: accessory muscle use, rales, rhonchi, wheezes - Cardiovascular Cardiovascular exam: Present: RRR, +S1, +S2. Absent: diastolic murmur, gallop, rubs, systolic murmur
[2016-12-05 11:18] LABS: Erythropoietin 22 mU/mL (4-27)
[2016-12-05 14:44] LABS: Haptoglobin 144 mg/dL (30-200)
[2016-12-05 15:05] LABS: Urine Collection Duration RANDOM hr; Urine Collection Volume RANDOM mL
[2016-12-05 16:06] LABS: Kappa Qnt Free Light Chains 2.32 mg/dL (0.33-1.94); Lambda Qnt Free Light Chains 1.34 mg/dL (0.57-2.63)
[2016-12-05 18:01] LABS: Sickle Cell Solubility NOT PERFORMED
[2016-12-06 08:05] LABS: Hemoglobin Capillary Electroph NOT PERFORMED
[2016-12-06 22:37] LABS: Alpha 2 Globulin (PEP) 0.81 g/dL (0.48-1.05); Beta Globulin (PEP) 0.86 g/dL (0.48-1.10)
[2016-12-07 07:11] LABS: IFE Reflexed NOT DONE
== END 2016-12-04 17:04 | disposition home or self-care (01) | DRG 378 ==
LOC: EMEROO 12:02 → 2NENU 12:02 → SUATTDRO 16:11
PROVIDERS: ADMIT Internal Medicine; ATTEND Internal Medicine

== ENCOUNTER 2019-03-07 12:25 | Observation (INO) ==
[2019-03-07] MEDS ORDERED: Pantoprazole 40 MG VIAL IVP ONE (12:58)
[2019-03-07] MEDS ORDERED: 0.9 % Sodium Chloride 500 ML ONE (14:46)
[2019-03-07 16:21] LABS: INR 1.2; Prothrombin Time 13.4 Seconds (9.4-12.1)
[2019-03-07 16:29] LABS: BUN/Creatinine Ratio 18 (6-26); Blood Urea Nitrogen 15 mg/dL (8-23); Calcium 9.1 mg/dL (8.6-10.3); Carbon Dioxide 28 mEq/L (23-29); Chloride 109 mEq/L (98-107); Glucose 108 mg/dL (70-105); Osmolality,Calculated 291 (280-300); Potassium 3.9 mEq/L (3.5-5.1); Sodium 140 mEq/L (136-145); Troponin I < 0.03 ng/mL (< 0.04); eGFR For African Americans > 60 (> 60); eGFR For Non-African Americans > 60 (> 60)
[2019-03-07] MEDS ORDERED: Naloxone 0.4 MG/ML INJ IVP PRN (17:42)
[2019-03-08 05:25] LABS: Hematocrit 23.5 % (35.3-44.9); Mean Corpuscular HGB Conc 29.8 g/dL (31.6-35.5); Mean Corpuscular Hemoglobin 22.1 pg (28.0-33.3); Mean Corpuscular Volume 74.1 fL (83.0-100.0); Mean Platelet Volume 10.2 fL (9.4-12.4); Platelet Count 131 K/mcL (140-400); Red Blood Count 3.17 M/mcL (3.82-4.97); Red Cell Distribution Width 19.3 % (11.5-14.5); White Blood Count 4.6 K/mcL (4.3-11.1)
[2019-03-08 05:45] LABS: Alanine Aminotransferase 15 Units/L (7-52); Albumin 3.8 g/dL (3.5-5.7); Albumin/Globulin Ratio 1.9 (1.1-2.2); Alkaline Phosphatase 90 Units/L (34-104); Aspartate Amino Transferase 20 Units/L (13-39); BUN/Creatinine Ratio 17 (6-26); Bilirubin,Total 0.6 mg/dL (0.3-1.0); Blood Urea Nitrogen 15 mg/dL (8-23); Carbon Dioxide 22 mEq/L (23-29); Chloride 107 mEq/L (98-107); Glucose 118 mg/dL (70-105); Osmolality,Calculated 290 (280-300); Potassium 3.4 mEq/L (3.5-5.1); Sodium 139 mEq/L (136-145); Total Protein 5.8 g/dL (6.4-8.9); eGFR For African Americans > 60 (> 60); eGFR For Non-African Americans > 60 (> 60)
[2019-03-08] MEDS ORDERED: *HR* Propofol 200 MG/20 ML VIAL IVP ONE ×2 (12:13)
[2019-03-08] MEDS ORDERED: Lidocaine -MPF 2% 2 ML VIAL ONE (13:19)
[2019-03-08] MEDS ORDERED: 0.9 % Sodium Chloride 250 ML ONE ×2 (16:37→21:57)
[2019-03-08 16:46] LABS: % Iron Saturation 4 % (15-50)
[2019-03-08 16:51] LABS: Iron 21 mcg/dL (50-170); Transferrin 341 mg/dL (203-362)
[2019-03-08] MEDS ORDERED: Furosemide 40 MG/4 ML VIAL IVP ONE (17:48)
[2019-03-09 10:01] LABS: Hematocrit 30.8 % (35.3-44.9); Hemoglobin 9.6 g/dL (11.5-15.4)
[2019-03-09 11:15] VITALS: BP 136/69
== END 2019-03-09 12:16 | disposition home or self-care (01) ==
LOC: EMEROOARM 12:25 → 3ANU 12:25 → SUATTDRO 18:16 → 3ANU 18:30
PROVIDERS: ADMIT Internal Medicine; ATTEND Internal Medicine